=== PATIENT | male | born 1965 | race Caucasian/White ===

== ENCOUNTER 2019-02-14 08:15 | Inpatient (IN) | payer OTHER ==
--- NOTE | 2019-02-02 09:07 | HP ---
HISTORY AND PHYSICAL: DATE OF ADMISSION/SURGERY: 02/14/19 DATE OF OFFICE VISIT: 02/01/19 SURGEON: Candy Foote MD.* (DICTATED BY DEBBIE SAVAGE) PROCEDURE: Left total hip arthroplasty. CHIEF COMPLAINT: Left hip pain. HISTORY OF PRESENT ILLNESS: Mr. Machado is a 53-year-old gentleman with severe left hip pain secondary to end-stage osteoarthritis. He has failed conservative treatment and elected to proceed with a left total hip arthroplasty. PAST MEDICAL HISTORY: Diabetes and hypertension. PAST SURGICAL HISTORY: Cyst removal and right total hip arthroplasty. CURRENT MEDICATIONS: 1. Metformin 2500 mg a day. 2. Januvia 100 mg daily. 3. Pioglitazone 30 mg a day. 4. Lisinopril 5 mg daily. 5. Pravachol 20 mg daily. 6. Farxiga 5 mg a day. 7. Glipizide 5 mg a day. 8. Trulicity 1 injection per week. 9. Pravastatin sodium 20 mg a day. ALLERGIES: No known drug allergies. FAMILY HISTORY: Diabetes, cancer, and coronary artery disease. SOCIAL HISTORY: He is a 53-year-old gentleman, lives with his . He does not smoke or use drugs, uses occasional alcohol. REVIEW OF SYSTEMS: A complete 14-point review of systems was reviewed with the patient, is positive for diabetes. He denies a history of DVT, PE, hepatitis, HIV, or anesthesia problems. PHYSICAL EXAMINATION GENERAL: He is well developed, well nourished, in no acute distress. VITAL SIGNS: He stands 70 inches tall, weighs 250 pounds, blood pressure is 124 /68. His heart rate is 77. HEENT: Normocephalic, atraumatic. NECK: Supple. No palpable lymph nodes. PULMONARY: The lungs are clear to auscultation bilaterally. CARDIO: Regular rate and rhythm. Strong S1 and S2. ABDOMEN: Soft, nontender, nondistended. NEUROLOGICAL: He is alert and oriented x3. MUSCULOSKELETAL: Left lower extremity: The skin is intact. There are no open wounds or abrasions. He walks with an antalgic type gait favoring his left hip. He has 80 degrees of hip flexion, 0 degrees of internal rotation, 30 degrees of external rotation, all reproducing groin pain. He is able to dorsiflex and plantarflex, has intact sensation and 2+ dorsalis pedis pulse. ASSESSMENT AND PLAN: Mr. Machado is a 53-year-old gentleman with severe end- stage osteoarthritis of the left hip. He has failed conservative treatment and elected to proceed with a left total hip arthroplasty. The surgery is scheduled for 02/14/[address] Foote discussed the risks and benefits of the surgery at today's visit and all of his questions were answered. He will follow up with Dr. Foote 2 weeks after the surgery. DEBBIE SAVAGE [id number]/[facility] #: [id number] MTDJosselyn
[~2019-02-14 08:15] MED LIST: Buffered Lidocaine 1% SYRIN* 1 ML/SYRINGE INTRADERM ONE; Famotidine IV* 10 MG/ML 2 ML (20 mg) IV ONE; Gabapentin CAP(*) 300 MG PO ONE; Lactated Ringers 1000 ML Bag* 1,000 ML IV SCH; Metoclopramide IV* 5 MG/ML 2 ML VIAL IV SLOW PU ONE; Tranexamic Acid 1,000 MG in NS 0.9% 50 ML* (outpatient use) IV SCH; celeCOXIB CAP* 200 MG PO ONE
--- OUTSIDE RECORDS SUMMARY | 2019-02-14 08:19 | XMS REPORT | Continuity of Care Document ---
:1965 External Reference #:[id number] Author Name Candy Foote M.D. (transmitted by agent of provider Haleigh Ledesma) Address [address] [place] [address] [place] [address] Care Team Providers Name Role Phone Yousif Canada M.D. 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 Onset: region and thigh Localized, primary osteoarthritis Candy Fooet M.D. Onset: 09/22/2017 Prosthetic arthroplasty of the hip Candy Foote M.D. Onset: 09/22/2017 Social History Type Date Description Comments Sex Unknown ETOH Use Occasionally consumes alcohol Tobacco Use Start: Unknown Patient has never smoked Smoking Status Reviewed: 02/01/19 Patient has never smoked Exercise Type/Frequency Exercises regularly Allergies, Adverse Reactions, Alerts Description No Known Drug Allergies Medications Active Medications SIG Qnty Indications Ordering Provider Date Meloxicam 1 by mouth every 30tabs M25.552 Candy Foote, 12/19/2018 15mg Tablets day M.D. Tramadol HCL 1 tablet by 30tabs M25.552 Candy Foote, 12/19/2018 50mg Tablets mouth every 6 M.D. hours as needed pain Metformin 2500 MG daily by Unknown mouth Januvia 100 MG daily Unknown Pioglitazone 30 daily Unknown Lisinopril 1 by mouth every Unknown 5mg Tablets day Pravachol 1 tablet by Unknown 20mg Tablets mouth once daily at bedtime Glipizide ER 1 tab daily Yousif Canada M.D. 5mg Tablets ER 24HR Trulicity 1 time per week Yousif Canada M.D. 0.75mg/0.5ML Solution Pen-Inject Pravastatin Sodium 1 tab by mouth Yousif Canada M.D. 20mg daily Tablets Onetouch Ultra Blue Yousif Canada M.D. Strips Medications Administered in Office Medication SIG Qnty Indications Ordering Provider Date Depomedrol 40MG Candy Foote M.D. 12/19/2018 Injection Triamcinolone (Kenalog) Bal Kenny MD 11/15/2018 Injection Synvisc Or Synvisc-One Injection 1 Candy Foote M.D. 11/08/2017 MG Injection Synvisc Or Synvisc-One Injection 1 Candy Foote M.D. 10/25/2017 MG Injection Synvisc Or Synvisc-One Injection 1 Candy Foote M.D. 10/18/2017 MG Injection Synvisc Or Synvisc-One Injection 1 Candy Foote M.D. 08/28/2013 MG Injection Synvisc Or Synvisc-One Injection 1 Candy Foote M.D. 08/23/2013 MG Injection Synvisc Or Synvisc-One Injection 1 Candy Foote M.D. 08/14/2013 MG Injection Depomedrol 80MG Candy Foote M.D. 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 Inj/Aspir Major JT Or Bursa <pending> W/ US Procedures Date Code Description Status 12/20/2018 49718 Excise Benign Lesion 2.1-3CM Completed Scalp/Neck/Hands/Feet/Genitalia 12/19/2018 07486 Inj/Aspir Major JT Or Bursa W/ US Completed 11/15/2018 56462 Inject Tendon Sheath Or Ligament Aponeurosis Eg Plantar Completed Fascia 05/05/2017 53561371 Colonoscopy Completed Medical Devices Description No Information Available Encounters Type Date Location Provider Dx Diagnosis Office Visit 12/19/2018 [facility] Candy Foote, M25.552 Pain in left hip 3:15p at [facility] M16.12 Unilateral primary osteoarthritis, left hip Office Visit 12/08/2018 9:30a [facility] Felipe Cleary L72.3 [facility] MD Office Visit 11/15/2018 8:30a [facility] Bal Kenny M25.512 Pain in left at [place] shoulder M25.511 Pain in right shoulder M75.42 Impingement syndrome of left shoulder M75.41 Impingement syndrome of right shoulder M75.22 Bicipital tendinitis, left shoulder Assessments Date Code Description Provider 02/01/2019 M25.552 Pain in left hip Candy Foote M.D. 02/01/2019 M16.12 Unilateral primary osteoarthritis, left Candy Foote M.D. 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 12/21/2018 M16.12 Unilateral primary osteoarthritis, left Candy Foote M.D. hip 12/20/2018 M25.552 Pain in left hip Candy Foote M.D. 12/20/2018 L72.3 Sebaceous cyst Felipe Gallagher MD 12/20/2018 M16.12 Unilateral primary osteoarthritis, left Candy Foote M.D. hip 12/19/2018 M25.552 Pain in left hip Candy Foote M.D. 12/19/2018 M16.12 Unilateral primary osteoarthritis, left Candy Foote M.D. hip 12/08/2018 L72.3 Sebaceous cyst Felipe Gallagher MD 11/15/2018 M25.512 Pain in left shoulder Bal Kenny MD 11/15/2018 M25.511 Pain in right shoulder Bal Kenny MD 11/15/2018 M75.42 Impingement syndrome of left shoulder Bal Kenny MD 11/15/2018 M75.41 Impingement syndrome of right shoulder Bal Kenny MD 11/15/2018 M75.22 Bicipital tendinitis, left shoulder Bal Kenny MD Plan of Treatment Future Appointment(s):02/27/2019 3:30 pm - Candy Foote M.D. at [facility] at Yhfxva2702/14/2019 12:00 pm - Ced Escalera PA-C at [facility] at Mjhazt8302/14/2019 12:00 pm - DEBBIE Enriquez at [facility] at Wdflys8802/14/2019 12:00 pm - Candy Foote M.D. at [facility] at Urtkap6202/01/2019 - Candy Foote M.D.M25.552 Pain in left hipFollow up:Follow up: 2 weeks after ufgmlytL21.12 Unilateral primary osteoarthritis, left hip Functional Status Description No Information Available Mental Status Description No Information Available Referrals Description No Information Available
--- OUTSIDE RECORDS SUMMARY | 2019-02-14 08:19 | XMS REPORT | Continuity of Care Document ---
:1965 External Reference #:[id number] Author Name Felipe Gallagher MD (transmitted by agent of provider Mago Alonzo) Address [address] [place] [address] Care Team Providers Name Role Phone Yousif Canada M.D. 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 Onset: region and thigh Localized, primary osteoarthritis Candy Foote M.D. Onset: 09/22/2017 Prosthetic arthroplasty of the hip Candy Foote M.D. Onset: 09/22/2017 Social History Type Date Description Comments Sex Unknown ETOH Use Occasionally consumes alcohol Tobacco Use Start: Unknown Patient has never smoked Smoking Status Reviewed: 12/20/18 Patient has never smoked Exercise Type/Frequency Exercises [...] Available Vital Signs Date Vital Result Comment 12/20/2018 10:06am Heart Rate 78 /min BP Systolic Sitting 128 mmHg BP Diastolic Sitting 92 mmHg Respiratory Rate 16 /min Body Temperature 97.5 F 12/19/2018 3:55pm Height 70 inches 5'10" Weight 257.00 lb BP Systolic 144 mmHg BP Diastolic 92 mmHg Respiratory Rate 16 /min Body Temperature 98.1 F Pain Level 5 BMI (Body Mass Index) 36.9 kg/m2 Results Test Date Facility Test Result H/L Range Note Xray 12/19/2018 [facility] In House Inj/Aspir Major JT Or Bursa W/ <pending> US Procedures Date Code Description Status 12/19/2018 08302 Inj/Aspir Major JT Or Bursa W/ US Completed 11/15/2018 53419 Inject Tendon Sheath Or Ligament Aponeurosis Eg Plantar Completed Fascia 05/05/2017 [id number] Colonoscopy Completed Medical Devices Description No Information Available Encounters Type Date Location Provider Dx Diagnosis Office Visit 11/15/2018 [facility] Bal Kenny MD M25.512 Pain in left 8:30a [facility]. shoulder M25.511 Pain in right shoulder M75.42 Impingement syndrome of left shoulder M75.41 Impingement syndrome of right shoulder M75.22 Bicipital tendinitis, left shoulder Assessments Date Code Description Provider 12/19/2018 M25.552 Pain in left hip Candy Foote M.D. 12/19/2018 M16.12 Unilateral primary osteoarthritis, left hip Candy oFote M.D. 11/15/2018 M25.512 Pain in left shoulder Bal Kenny MD 11/15/2018 M25.511 Pain in right shoulder Bal Kenny MD 11/15/2018 M75.42 Impingement syndrome of left shoulder Bal Kenny MD 11/15/2018 M75.41 Impingement syndrome of right shoulder Bal Kenny MD 11/15/2018 M75.22 Bicipital tendinitis, left shoulder Bal Kenny MD Plan of Treatment Future Appointment(s):01/02/2019 10:00 am - Edison Manzo MD, FACS at [facility]01/16/2019 2:30 pm - Candy Foote M.D. at [facility]12/19/2018 - Candy Foote M.D.M25.552 Pain in left hipNew Medication:Meloxicam 15 mg - 1 by mouth every dayTramadol HCL 50 mg - 1 tablet by mouth every 6 hours as needed painFollow up:Follow up: 4 tqqkbL32.12 Unilateral primary osteoarthritis, left hip Functional Status Description No Information Available Mental Status Description No Information Available Referrals Description No Information Available
--- OUTSIDE RECORDS SUMMARY | 2019-02-14 08:19 | XMS REPORT | Continuity of Care Document ---
:1965 External Reference #:[id number] Author Name Edison Manzo MD, FACS (transmitted by agent of provider Faviola Brush) Address [address] [place] [address] [place] [address] Care Team Providers Name Role Phone Yousif Canada M.D. 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 Onset: region and thigh Localized, primary osteoarthritis Candy Foote M.D. Onset: 09/22/2017 Prosthetic arthroplasty of the hip Candy Foote M.D. Onset: 09/22/2017 Social History Type Date Description Comments Sex Unknown ETOH Use Occasionally consumes alcohol Tobacco Use Start: Unknown Patient has never smoked Smoking Status Reviewed: 01/02/19 Patient has never smoked Exercise Type/Frequency Exercises [...] Available Vital Signs Date Vital Result Comment 01/02/2019 10:00am Heart Rate 84 /min Respiratory Rate 18 /min Body Temperature 97.1 F 12/20/2018 10:06am Heart Rate 78 /min BP Systolic Sitting 128 mmHg BP Diastolic Sitting 92 mmHg Respiratory Rate 16 /min Body Temperature 97.5 F Results Test Date Facility Test Result H/L Range Note Xray 12/19/2018 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 Inj/Aspir Major JT Or Bursa W/ <pending> US Procedures Date Code Description Status 12/20/2018 51726 Excise Benign Lesion 2.1-3CM Completed Scalp/Neck/Hands/Feet/Genitalia 12/19/2018 62133 Inj/Aspir Major JT Or Bursa W/ US Completed 11/15/2018 12303 Inject Tendon Sheath Or Ligament Aponeurosis Eg Plantar Completed Fascia 05/05/2017 [id number] Colonoscopy Completed Medical Devices Description No Information Available Encounters Type Date Location Provider Dx Diagnosis Office Visit 12/19/2018 [facility] Candy Foote M25.552 Pain in left hip 3:15p at [facility] M16.12 Unilateral primary osteoarthritis, left hip Office Visit 11/15/2018 8:30a [facility] Bal Kenny M25.512 Pain in left at [place] shoulder M25.511 Pain in right shoulder M75.42 Impingement syndrome of left shoulder M75.41 Impingement syndrome of right shoulder M75.22 Bicipital tendinitis, left shoulder Assessments Date Code Description Provider 12/21/2018 M25.552 Pain in left hip Candy Foote M.D. 12/21/2018 M16.12 Unilateral primary osteoarthritis, left hip Candy Foote M.D. 12/20/2018 M25.552 Pain in left hip Candy Foote M.D. 12/20/2018 L72.3 Sebaceous cyst Felipe Gallagher MD 12/20/2018 M16.12 Unilateral primary osteoarthritis, left hip Candy Foote M.D. 12/19/2018 M25.552 Pain in left hip Candy Foote M.D. 12/19/2018 M16.12 Unilateral primary osteoarthritis, left hip Candy Foote M.D. 11/15/2018 M25.512 Pain in left shoulder Bal Kenny MD 11/15/2018 M25.511 Pain in right shoulder Bal Kenny MD 11/15/2018 M75.42 Impingement syndrome of left shoulder Bal Kenny MD 11/15/2018 M75.41 Impingement syndrome of right shoulder Bal Kenny MD 11/15/2018 M75.22 Bicipital tendinitis, left shoulder Bal Kenny MD Plan of Treatment Future Appointment(s):02/14/2019 12:00 pm - Candy Foote M.D. at [facility]02/01/2019 8:00 am - Candy Foote M.D. at [facility] at Urshlp7212/20/2018 - Felipe Gallagher MDL72.3 Sebaceous cystComments:Here for excision. The area was prepped and draped in sterile fashion. The skin is anesthetized with plain lidocaine. An incision was made in the cyst is sharply and bluntly excised from the surrounding tissue. 2 Prolene sutures are placed. EBL minimal he tolerated the procedure well. Antibioticointment applied Functional Status Description No Information Available Mental Status Description No Information Available Referrals Description No Information Available
--- OUTSIDE RECORDS SUMMARY | 2019-02-14 08:19 | XMS REPORT | Continuity of Care Document ---
:1965 External Reference #:[id number] Author Name Candy Foote M.D. (transmitted by agent of provider Holli Cherry) Address [address] [place] [address] [place] [address] Care Team Providers Name Role Phone Yousif Canada M.D. 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 Onset: region and thigh Localized, primary osteoarthritis Candy Foote M.D. Onset: 09/22/2017 Prosthetic arthroplasty of the hip Candy Foote M.D. Onset: 09/22/2017 Social History Type Date Description Comments Sex Unknown ETOH Use Occasionally consumes alcohol Tobacco Use Start: Unknown Patient has never smoked Smoking Status Reviewed: 12/19/18 Patient has never smoked Exercise Type/Frequency Exercises [...] Medication SIG Qnty Indications Ordering Provider Date Triamcinolone (Kenalog) Bal Kenny MD 11/15/2018 Injection [...] Available Vital Signs Date Vital Result Comment 12/19/2018 3:55pm Height 70 inches 5'10" Weight 257.00 lb BP Systolic 144 mmHg BP Diastolic 92 mmHg Respiratory Rate 16 /min Body Temperature 98.1 F Pain Level 5 BMI (Body Mass Index) 36.9 kg/m2 12/08/2018 9:40am Height 70 inches 5'10" Weight 257.00 lb Heart Rate 90 /min Respiratory Rate 16 /min Body Temperature 97.1 F BMI (Body Mass Index) 36.9 kg/m2 Results Test Date Facility Test Result H/L Range Note Xray 12/19/2018 Transportation 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 In House Inj/Aspir Major JT Or Bursa W/ <pending> US Procedures Date Code Description Status 12/19/2018 29154 Inj/Aspir Major JT Or Bursa W/ US Completed 11/15/2018 84111 Inject Tendon Sheath Or Ligament Aponeurosis Eg Plantar Completed Fascia 05/05/2017 [id number] Colonoscopy Completed Medical Devices Description No Information Available Encounters Type Date Location Provider Dx Diagnosis Office Visit 11/15/2018 [facility] Bal Kenny MD M25.512 Pain in left 8:30a [facility] M25.511 Pain in right shoulder M75.42 [...] Bal Kenny MD Plan of Treatment Future Appointment(s):01/16/2019 2:30 pm - Candy Foote M.D. at [facility]12/20/2018 10:00 am - Felipe Gallagher MD at [facility]12/19/2018 - Candy Foote M.D.M25.552 Pain in left hipNew Medication:Meloxicam 15 mg - 1 by mouth every dayTramadol HCL 50 mg - 1 tablet by mouth every 6 hours as needed painFollow up:Follow up: 4 neoewB02.12 Unilateral primary osteoarthritis, left hip Functional Status Description No Information Available Mental Status Description No Information Available Referrals Description No Information Available
[2019-02-14] MEDS ORDERED: Gabapentin CAP(*) 300 MG ONE (09:20)
[2019-02-14] MEDS ORDERED: Metoclopramide IV* 5 MG/ML 2 ML VIAL ONE (09:20)
[2019-02-14] MEDS ORDERED: ceFAZolin 2 GM in NS PREMIX(*) 2 GM/100 ML BAG IVPB ONE (09:21)
[2019-02-14] MEDS ORDERED: Famotidine IV* 10 MG/ML 2 ML (20 mg) ONE (09:21)
[2019-02-14] MEDS ORDERED: celeCOXIB CAP* 200 MG ONE (09:21)
[2019-02-14] MEDS ORDERED: KETAMINE HCL* 50 MG/ML 10 ML VIAL ONE (10:16)
[2019-02-14] MEDS ORDERED: Midazolam* 1 MG/ML 5 ML VIAL (5 MG) ONE (10:16)
[2019-02-14] MEDS ORDERED: Propofol* 10 MG/ML 20 ML BTL ONE ×2 (10:18→11:45)
[2019-02-14] MEDS ORDERED: Bupivacaine 0.5% SDV PF* 30ML VIAL ONE (11:45)
[2019-02-14] MEDS ORDERED: fentaNYL* 50 MCG/ML 2 ML VIAL (100 MCG VIAL) IV PRN (12:05)
[2019-02-14] MEDS ORDERED: Naloxone* 0.4 MG/ML 1 ML VIAL IV PRN (12:05)
[2019-02-14] MEDS ORDERED: Ondansetron INJ* 2 MG/ML VIAL IV PRN ×2 (12:05→12:53)
[2019-02-14] MEDS ORDERED: HYDROmorphone INJ1* 1 MG/ML SYRINGE IV PRN (12:05)
[2019-02-14] MEDS ORDERED: diPHENhydraMINE PO* 25 MG PO PRN (12:53)
[2019-02-14] MEDS ORDERED: Ondansetron TAB* 4 MG PO PRN (12:53)
[2019-02-14] MEDS ORDERED: Polyethylene Glycol 3350* 17 GM PACKET PO PRN (12:53)
[2019-02-14] MEDS ORDERED: diPHENhydraMINE IV* 50 MG/ML 1 ml VIAL (BENADRYL) IV PRN (12:53)
[2019-02-14] MEDS ORDERED: Morphine INJ* 2 MG/ML 1 ML SYRINGE (TWO MG - NEW SYRINGE VERSION) IV PRN (12:53)
[2019-02-14] MEDS ORDERED: Cyclobenzaprine TAB* 10 MG PO PRN (12:53)
[2019-02-14] MEDS ORDERED: traMADol TAB* 50 MG PO PRN (12:53)
[2019-02-14] MEDS ORDERED: Ondansetron ODT TAB* 4 MG PO PRN (12:53)
[2019-02-14] MEDS ORDERED: Magnesium Hydroxide LIQ* 30 ML UDC PO PRN (12:53)
[2019-02-14] MEDS ORDERED: Lactated Ringers 1000 ML Bag* 1,000 ML IV SCH (13:00)
[2019-02-14] MEDS: oxyCODONE/Acetamin 5/325 MG* TAB PO PRN ×2 (15:18→19:36)
--- NOTE | 2019-02-14 16:41 | PN ---
Progress Note - Progress Note Date of Service: 02/14/19 Note: OOB to chair, pain well controlled with PO meds; able to DF/PF, 2+ DP pulse and intact sensation; dressing c/d/i
[2019-02-14] MEDS: oxyCODONE TAB* 5 MG TAB PO PRN (17:50)
[2019-02-14] MEDS ORDERED: metFORMIN* 1,000 MG TAB PO SCH (18:00)
[2019-02-14] MEDS ORDERED: Atorvastatin* 10 MG TAB PO SCH (18:00)
--- NOTE | 2019-02-14 19:17 | CONS ---
CONSULTATION REPORT: DATE OF CONSULT: 02/14/19 REQUESTING PROVIDER: Dr. Foote. REASON FOR CONSULT: Co-management of medical comorbidities. HISTORY OF PRESENT ILLNESS: This is a 53-year-old male with a past medical history significant for diabetes and hyperlipidemia, who was admitted on , status post a left total hip arthroplasty after failing conservative outpatient management. Hospitalists were asked to consult with the patient in order to help manage his diabetes and high cholesterol. The patient was seen in his room, sitting up in chair, in good spirits, though slightly pale after having just vomited. Otherwise, he states that the pain is well controlled. PAST MEDICAL HISTORY: Diabetes, hyperlipidemia, and osteoarthritis. PAST SURGICAL HISTORY: Cyst removal and right total hip arthroplasty. MEDICATIONS: The patient takes: 1. Metformin 2500 mg p.o. daily. 2. Januvia 100 mg p.o. daily. 3. Pioglitazone 30 mg p.o. daily. 4. Lisinopril 5 mg p.o. daily. 5. Pravastatin 20 mg p.o. daily. 6. Farxiga 5 mg p.o. daily. 7. Glipizide 5 mg p.o. daily. 8. Trulicity 1 injection weekly. ALLERGIES: No known drug allergies. FAMILY HISTORY: Significant for diabetes, colon cancer, and coronary artery disease. SOCIAL HISTORY: Denies any tobacco use. Drinks about 2 glasses of wine a week. Denies any recreational substance use. Lives with his . Has 2 children. He has just recently stopped working at [employer]. REVIEW OF SYSTEMS: A 12-point system review was performed and was positive for left hip pain, nausea, and vomiting though denies any chest pain, shortness of breath, fever, chills, issues with moving bowel or bladder. PHYSICAL EXAM: Vital Signs: 97.7 Fahrenheit, 87 pulse, 16 resps, 97% oxygen on room air, 111/58 blood pressure. General: This is a well-developed obese gentleman, seen sitting up in chair, pale, though in no acute distress noted. Eyes: Conjunctivae pink and moist. PERRLA. EOMs intact. ENT: Mucous membranes moist. Oropharynx clear. Neck is supple. Cardiac: S1, S2 present. Heart rate regular. No murmurs, gallops or rubs appreciated. Respiratory: Lung sounds clear throughout bilaterally on room air. No accessory muscle use noted. Abdomen: Large, soft, nontender, nondistended with positive bowel sounds x4. : Cardoso catheter draining medium clear yellow urine. Musculoskeletal: Able to move all extremities. Cap refill less than 3 seconds, 2+ pedal pulses bilaterally. Trace left lower extremity edema. Skin: Dressing is clean, dry, and intact to the left hip. No other open areas appreciated. Neurological: Able to dorsi and plantar flex. Sensation intact to light touch. No other focal deficits appreciated. Psych: Alert and oriented x4. Thought content organized. DIAGNOSTIC STUDIES/LAB DATA: Pelvic x-ray showed status post bilateral hip arthroplasties with no appreciable hardware failure. Pertinent lab studies: POC glucose is 102. ASSESSMENT AND PLAN: My impression is this is a 53-year-old male with a past medical history significant for diabetes and osteoarthritis, and hyperlipidemia , who is admitted on 02/14/19, status post a left total hip replacement after failing conservative outpatient management. 1. Left total hip replacement. PT and OT. Pain and bowel management as per Ortho. Cardoso catheter to be removed in the a.m. May saline lock IV fluids when tolerating p.o. and hemodynamically stable. Pain seems to be well controlled at this point in time. 2. Diabetes type 2. The patient stated that his last hemoglobin was performed in December with somewhere around 5.9%. Dr. Canada manages his glucoses. Has had a 35- pound weight loss this year and has been scaling back on his diabetic medication, starting with the glipizide. He is on 6 different drug classes for glycemic control. The patient stated this was due to the fact that he was resistant to the idea of insulin and has been trying to workout in stead to help lower his glucoses. We will continue his Januvia, pioglitazone, Farxiga, glipizide, but will hold the Trulicity and metformin, and check fingersticks a.c. and h.s., without any sliding scale coverage though to notify MD if blood sugar is less than 70 or greater than 200. He also states that he takes a lisinopril purely as a kidney protective agent, not for hypertension, but we will hold the lisinopril during his stay here and he may resume it upon discharge. 3. Hyperlipidemia. Continue the pravastatin. 4. DVT prophylaxis. Continue apixaban and SCDs as per Ortho. 5. Code status. He is full code. 6. Condition of the patient is fair. 7. Disposition. Admit inpatient to short-stay surgical. TIME SPENT: Time spent on the patient is about 40 minutes with half of that spent [id number]. Thank you for allowing us to participate in the care of this patient. We will follow during this admission. [id number]/[facility] #: [id number] RHONA
[2019-02-14] MEDS: ceFAZolin 1 GM ADVAN(*) 1 GM in NS 0.9% 50 ML* 50 ML IVPB SCH (19:37)
--- NOTE | 2019-02-14 19:45 | OP ---
Operative Report - Blank - Operative Report Date of Operation: 02/14/19 Note: ROBERT HANDY 1965 Date Of Surgery: 02/14/19 Candy Foote MD Applications Support Engineer: Sherita LEWIS did help throughout the procedure with preparation of the hip, wound retraction, manipulation of the hip, and wound closure. Anesthesiologist: Dr. Zamora Anesthesia Type: Spinal Preoperative Diagnosis: Left severe degenerative osteoarthritis of the hip Postoperative Diagnosis: As above Procedure Performed: Left Total Hip Arthroplasty Complications: None Specimen: Femoral head and acetabular reamings sent to pathology. Hardware used: This is uncemented [place] total hip arthroplasty hardware for the femur a size 6 accolade II with 127 neck angle femoral component, for the acetabulum a size 54E trident II tritanium cluster hole shell, a single 20 mm screw, for the insert a size 36E trident X 3 polyethylene insert, and for the femoral head a size 36 + 2.5 V40 femoral head. Brief history/Indication: ROBERT HANDY was known in clinic and had a history of severe left hip pain. He failed conservative treatment with anti- inflammatories, pain pills, intra-articular injections and physical therapy. He elected to undergo left total hip arthroplasty due to continued pain and decreased quality of life. Radiographs showed severe end stage osteoarthritis of the hip with bone on bone contact. Informed consent was obtained from the patient. He understood the risks of surgery included but were not limited to: bleeding, infection, damage to nearby structures, intraoperative fracture, nerve palsy, failure of the hardware, early loosening, stiffness or loss of motion, dislocation, leg length discrepancy, anesthesia complications, stroke, heart attack, blood clot and . He wished to proceed. Intra-Operative findings: Intraoperatively the patient was noted to have severe loss of cartilage of the acetabulum and femoral head. Description of the Procedure: ROBERT HANDY was identified in the preanesthesia unit. His left hip was marked as the correct operative side. Informed consent was signed and placed in the chart. The patient was taken to the operating room and placed under anesthesia without complication. A bennett catheter was placed. The patient was placed on the peg board with all bony prominences well padded. The left lower extremity was prepped and draped in the usual sterile fashion. Preoperative time -out was made to correctly identify the patient, side and site. Appropriate intraoperative antibiotics were given within one hour of incision. A standard posterior incision was made and carried sharply down to the lateral fascia. A new 10 blade was used to make an incision in the fascia in line with the skin incision. A charnley retractor was placed. The piriformis and conjoined tendons were identified and elevated off the posterolateral femur using electrocautery. These were tagged with number 5 Ethibond. Next electrocautery was used to make a posterolateral capsular flap and this was tagged with number 5 Ethibonds. The hip was carefully dislocated. Lesser trochanter to the center of the femoral head was measured at 62 mm. The oscillating saw was used to make the femoral neck cut. The femoral head was carefully removed. The femur was retracted anteriorly and the acetabular retractors were placed. Long-handled knife was used to sharply remove any remaining labrum from the acetabular rim. The acetabulum was sequentially reamed up to a size 54. A bleeding subchondral bone bed was obtained. A trial liner was placed and had excellent fit and stability. A 54E cup with a 20 mm screw was placed and had excellent stability with appropriate anteversion and abduction angle. A size 36E liner was impacted into the acetabular shell. The liner was checked for stability and was stable. Next attention was turned to preparation of the femoral canal. A canal finder was used to enter the proximal femur. The femoral canal was sequentially broached up to a size 6 femoral broach trial. A trial neck and 36 +2.5 trial femoral head was chosen. Lesser trochanter to center of the femoral head measurement was satisfactory. The hip was reduced and taken through a range of motion. The hip was stable in all positions with good soft tissue tension and appropriate leg lengths. The hip was dislocated and all trials were removed. The final implant chosen was a accolade II size 6. This stem was impacted into the femoral canal without difficulty. The stem was stable with appropriate anteversion. The femoral head chosen was a 36 + 2.5 ceramic head. The head was impacted onto the femoral neck without difficulty. The final lesser trochanter to center of the femoral head measurement was satisfactory. The hip was reduced and taken through a range of motion. The hip was stable in all positions with good soft tissue tension and appropriate leg lengths. The hip was copiously irrigated with sterile saline. The previously tagged capsule and tendons were repaired to the posterolateral femur through two trochanteric drill holes. The lateral fascia layer was closed using number 1 vicryls. The rest of the incision was closed in a layered fashion using 0 and 2-0 vicryls. The skin was closed using 3-0 monocryl suture and Dermabond. Sterile adaptic, 4x4s and paper tape was used to cover the incision. The patients anesthesia was reversed without difficulty. He was taken to the PACU in stable condition. Intended weight-bearing will be as tolerated with posterior hip precautions.
[2019-02-14] MEDS ORDERED: Insulin LISPRO* 1 UNITS UNIT SUBCUT ONE (22:15)
[2019-02-14] MEDS: Docusate CAP* 100 MG PO SCH (22:49)
[2019-02-14] MEDS: Magnesium Hydroxide LIQ* 30 ML UDC PO SCH (22:49)
[2019-02-14] MEDS: Acetaminophen TAB* 325 MG PO SCH (22:50)
[2019-02-15] MEDS: oxyCODONE TAB* 5 MG TAB PO PRN ×2 (00:23→08:32)
[2019-02-15] MEDS: ceFAZolin 1 GM ADVAN(*) 1 GM in NS 0.9% 50 ML* 50 ML IVPB SCH ×2 (03:57→12:18)
[2019-02-15] MEDS: oxyCODONE/Acetamin 5/325 MG* TAB PO PRN ×2 (05:11→12:18)
[2019-02-15] MEDS: Acetaminophen TAB* 325 MG PO SCH ×2 (05:12→13:32)
[2019-02-15 05:28] LABS: Hematocrit 39 % (42-52); Mean Platelet Volume 7.7 fL (7.4-10.4); Platelet Count 238 10^3/uL (150-450)
[2019-02-15 06:00] LABS: BUN/Creatinine Ratio 20.9 (8-20); Calcium 8.9 mg/dL (8.6-10.3); EGFR African American 111.7 (>60); EGFR Non-African American 92.3 (>60); Potassium 4.1 mmol/L (3.5-5.0)
[2019-02-15] MEDS ORDERED: glipiZIDE TAB* 5 MG PO SCH (08:30)
[2019-02-15] MEDS ORDERED: metFORMIN* 1,000 MG TAB PO SCH (09:00)
[2019-02-15] MEDS ORDERED: Vitamin THERAPEUTIC TAB PO SCH (09:00)
[2019-02-15] MEDS ORDERED: Apixaban* 2.5 MG TAB PO SCH (09:00)
[2019-02-15] MEDS ORDERED: Pioglitazone TAB* 30 MG PO SCH (09:00)
[2019-02-15] MEDS ORDERED: Lisinopril TAB* 5 MG PO SCH (09:00)
[2019-02-15] MEDS ORDERED: SitaGLIPtin (NF) 100 MG TAB PO SCH (09:00)
[2019-02-15] MEDS: Magnesium Hydroxide LIQ* 30 ML UDC PO SCH (09:10)
[2019-02-15] MEDS: Docusate CAP* 100 MG PO SCH (09:14)
--- NOTE | 2019-02-15 11:35 | DS ---
Orthopedic Discharge Summary - Discharge Summary Date of Admission:02/14/19 Date of Discharge: 02/15/19 Date of Surgery: 02/14/19 Attending Orthopedic Provider: Dr Foote Pre-operative Diagnosis: Left hip osteoarthritis Operative Procedure: left total hip arthroplasty Disposition of Patient: home Condition of Patient: stable History: ROBERT HANDY is a 53 year old M with years of increasingly severe left hip pain. Patient has failed conservative management and has elected to undergo a left total hip replacement Hospital Course: ROBERT was admitted to [facility] on 02/14/19. Patient underwent a left total hip replacement without complication followed by a brief recovery in PACU and transfer to the Short Stay Surgical Unit in stable condition. Our hospitalist service, physical therapy and occupational therapy also participated in this patients care. Post-op day 1: Denies CP, SOB, dizziness, nausea. Hip pain is well controlled. patient was alert and in no acute distress. Dressing was clean, dry and intact. Operative extremity dorsiflexion and plantarflexion intact, sensation intact to light touch distally , DP2+. Prior to dc: dressing was changed, incision was clean, dry and intact. Patient was deemed to be medically and orthopedically stable for discharge. Physical therapy goals were met. DC meds Glipizide 5 mg PO QAM 04/05/13 [History Confirmed 02/14/19] Lisinopril TAB* [Prinivil TAB 5 MG*] 5 mg PO QAM 04/05/13 [History Confirmed ] Metformin HCl 1,500 mg PO QAM 04/05/13 [History Confirmed 02/14/19] Pravastatin Sodium [Pravachol] 20 mg PO QPM 04/05/13 [History Confirmed 02/14/19 ] Dulaglutide [Trulicity] 0.75 mg SQ WEEKLY 02/01/19 [History Confirmed 02/14/19] Metformin HCl [Fortamet] 1,000 mg PO QPM 02/01/19 [History Confirmed 02/14/19] Pioglitazone HCl [Actos] 30 mg PO QAM 02/01/19 [History Confirmed 02/14/19] Sitagliptin Phosphate [Januvia] 100 mg PO QAM 02/01/19 [History Confirmed ] Acetaminophen TAB* [Tylenol TAB*] 975 mg PO Q8HR tab 02/15/19 [Rx] Apixaban* [Eliquis*] 2.5 mg PO BID #60 tab 02/15/19 [Rx] Docusate CAP* [Colace Cap*] 100 mg PO BID PRN #90 cap 02/15/19 [Rx] oxyCODONE/Acetamin 5/325 MG* [Percocet 5/325 TAB*] 2 tab PO Q4H PRN #70 tab MDD 10 02/15/19 [Rx] Discharge Instructions following Orthopedic Surgery: Activity: * Weight Bearing as tolerated * Continue physical therapy and occupational therapy exercises as shown * Home PT Hip replacements: Continue Hip Precautions- do not cross legs or bend greater than 90 degrees/squat Wound care: * OK to shower on post-op day 3, no bathing, swimming, or submerging wound. * Use gentle soap, pat dry. Cover with gauze, JANETH wrap or tape. * Visiting home nurse to do wound checks. Call Orthopedic office for: * Increased drainage * Redness * Increased pain * Fever Go to ER with shortness of breath or chest pain. Diet: * Regular diet * Increase fluids and fiber to prevent constipation. * Continue to use stool softeners, call office if no bowel motion within 48 hours. Medications See Home Medication List in your packet for medications that you should take after discharge. DVT Prophylaxis: Increases bleeding tendency Eliquis Dosin.5 mg, 1 tab every 12 hours x 30 days post op Pain Control: Percocet Dosin/325 mg 1-2 tabs by mouth every 4-6 hours as needed for pain. Maximum of 10 tabs per day. Hold for sedation ,wean off as soon as pain allows Please note that Percocet contains Tylenol (acetaminophen). Maximum daily dose of Tylenol is 4000 mg from all sources. Antibiotics are required prior to any dental work. FOLLOW UP: Follow up with [Qamar] Within 10-14 days, call for appointment Please call our office with any questions or concerns ([phone]) [facility]
[2019-02-15 15:14] VITALS: BP 127/55
[2019-02-16] MEDS ORDERED: Bisacodyl SUPP* 10 MG SUPP PR PRN (12:53)
[2019-02-19] MEDS ORDERED: Dulaglutide (NF) 0.75 MG/0.5 ML SYRINGE SUBCUT SCH (09:00)
== END 2019-02-15 15:30 | disposition home or self-care (01) | DRG 301 ==
LOC: AA 08:15 → SSU 15:06
PROVIDERS: ADMIT Orthopaedic Surgery Adult Reconstructive Orthopaedic Surgery; ATTEND Orthopaedic Surgery Adult Reconstructive Orthopaedic Surgery
PROC: 0SRB04A Replacement of Left Hip Joint with Ceramic on Polyethylene Synthetic Substitute, Uncemented, Open Approach (ICD-10-PCS; principal; 2019-02-14 11:00)
DX: M16.12 Unilateral primary osteoarthritis, left hip (principal); E11.9 Type 2 diabetes mellitus without complications; I10 Essential (primary) hypertension; Z96.641 Presence of right artificial hip joint; E78.2 Mixed hyperlipidemia; E78.00 Pure hypercholesterolemia, unspecified; K21.9 Gastro-esophageal reflux disease without esophagitis; E66.9 Obesity, unspecified; Z68.35 Body mass index [BMI] 35.0-35.9, adult; K64.4 Residual hemorrhoidal skin tags; G47.30 Sleep apnea, unspecified; J30.2 Other seasonal allergic rhinitis; Z79.84 Long term (current) use of oral hypoglycemic drugs; Z79.899 Other long term (current) drug therapy
CPT/HCPCS: 36415; 72170; 80048; 85014; 85018; 85049; A9270-GY; C1713; C1776; J0690; J2250; J2405; J2704; J2765; J3490